=== PATIENT | male | born 1945 | race Two or more races ===

== ENCOUNTER 2022-10-29 05:20 | Day surgery (SDC) | payer OTHER ==
[~2022-10-29] VITALS: Ht 167.6 cm; Wt 70.8 kg
[~2022-10-29 05:20] MED LIST: NORVASC5 MG PO; ZESTRIL20 MG PO
== END 2022-10-29 14:45 | disposition home or self-care (01) ==
LOC: CIR.AMB 05:20
PROVIDERS: ATTEND Surgery
DX: K40.20 Bilateral inguinal hernia, without obstruction or gangrene, not specified as recurrent (principal); K42.0 Umbilical hernia with obstruction, without gangrene; Z20.822 Contact with and (suspected) exposure to COVID-19; I10 Essential (primary) hypertension
CPT/HCPCS: 49505; 49594; C1781